=== PATIENT | male | born 1995 | race Caucasian/White ===

== ENCOUNTER 2021-01-30 13:30 | Day surgery (SDC) | payer OTHER ==
[2021-01-27 14:10] LABS: BASOPHILS % (AUTO) 0 % (0-1); EOSINOPHILS % (AUTO) 0 % (1-7); LYMPHOCYTES % (AUTO) 25 % (22-44); MEAN CORPUSCULAR HEMOGLOBIN 31.1 pg (27.5-34.5); MEAN CORPUSCULAR HGB CONC 33.9 g/dL (33.2-36.2); MEAN PLATELET VOLUME 8.2 fL (7.4-10.4); MONOCYTES % (AUTO) 6 % (2-9); NEUTROPHILS % (AUTO) 69 % (42-75); PLATELET COUNT 255 x10^3/uL (130-400); RED BLOOD COUNT 5.44 x10^6/uL (4.38-5.82); RED CELL DISTRIBUTION WIDTH 13.2 % (9.4-14.8)
[2021-01-27 14:13] LABS: MICROSCOPIC NOT IND
[2021-01-27 14:17] LABS: ANION GAP 7 mmol/L (5-15); CALCIUM 9.7 mg/dL (8.5-10.1); CHLORIDE 105 mmol/L (98-107); CREATININE 0.67 mg/dL (0.7-1.3)
[2021-01-27 14:18] LABS: PROTHROMBIN TIME 10.7 Seconds (9.6-11.5)
[~2021-01-30] VITALS: Ht 172.7 cm; Wt 66.3 kg
[~2021-01-30 13:30] MED LIST: NONE PER PT
[2021-01-30] MEDS ORDERED: MIDAZOLAM 1 MG/ML, 2ML ONE (13:52)
[2021-01-30] MEDS ORDERED: FENTANYL PF 250 MCG/5ML ONE (13:53)
[2021-01-30 13:54] VITALS: BP 114/75
[2021-01-30] MEDS ORDERED: BUPIVACAINE/PF 0.25% ONE (13:57)
[2021-01-30] MEDS ORDERED: MULT-449 PO (13:58)
[2021-01-30] MEDS ORDERED: CHLORHEXIDINE 15 ML UDC PO ONE (14:00)
[2021-01-30] MEDS ORDERED: LACTATED RINGERS 1,000 ML IV SCH (14:00)
[2021-01-30] MEDS ORDERED: DEXAMETHASONE 4 MG/ML, 1ML ONE (14:29)
[2021-01-30] MEDS ORDERED: PROPOFOL 10 MG/ML, 20ML ONE (14:40)
[2021-01-30] MEDS ORDERED: CEFAZOLIN 1,000 MG ONE (14:40)
[2021-01-30] MEDS ORDERED: hydrALAzine 20 MG/ML, 1ML IV PRN (15:00)
[2021-01-30] MEDS ORDERED: PROMETHAZINE 25 MG/ML, 1ML IVPush PRN (15:00)
[2021-01-30] MEDS ORDERED: HYDROmorphone 1 MG/ML, 1ML INJ IVPush PRN (15:00)
[2021-01-30] MEDS ORDERED: MEPERIDINE/PF 25MG/0.5ML IVPush PRN (15:00)
[2021-01-30] MEDS ORDERED: ONDANSETRON 2MG/ML, 2ML IVPush PRN (15:00)
[2021-01-30] MEDS ORDERED: OXYcodone 5 MG/5 ML ORAL.SOL UDC PO PRN (15:00)
[2021-01-30] MEDS ORDERED: ACETAMINOPHEN 325 MG TABLET PO PRN (15:00)
[2021-01-30] MEDS ORDERED: LABETALOL 5MG/ML, 20ML IV PRN (15:00)
[2021-01-30] MEDS ORDERED: FENTANYL PF 100 MCG/2ML IV PRN (15:00)
[2021-01-30] MEDS ORDERED: KETOROLAC 30 MG/1 ML ONE (15:12)
[2021-01-30] MEDS ORDERED: ONDANSETRON 2MG/ML, 2ML ONE (15:12)
[2021-01-30] MEDS ORDERED: MEPERIDINE/PF 25MG/ML,1ML ONE (15:38)
== END 2021-01-30 17:50 | disposition home or self-care (01) ==
LOC: OR 13:30
PROVIDERS: ATTEND Urology
DX: N50.89 Other specified disorders of the male genital organs (principal); C62.91 Malignant neoplasm of right testis, unspecified whether descended or undescended; Z79.01 Long term (current) use of anticoagulants; Z79.899 Other long term (current) drug therapy; Z87.891 Personal history of nicotine dependence
CPT/HCPCS: 36415; 54530; 80048; 81003; 82105; 83615; 84702; 85025; 85610; 85730; 87086; 88309; J0690; J1100; J1885; J2175; J2250; J2405; J2704; J3010; J7120; 88304